=== PATIENT | male | born 1965 | race Caucasian/White ===

== ENCOUNTER 2017-07-18 09:04 | Outpatient (CLI) | payer BC ==
--- NOTE | 2017-07-18 10:15 | RAD ---
TWO VIEWS CHEST: History: Abnormal EKG. Comparison: None. FINDINGS: Normal cardiac silhouette. The pulmonary vessels and hilum are normal. Costophrenic angles are clear. No consolidation or mass. No pneumothorax or osseous abnormalities. IMPRESSION: No acute cardiopulmonary process. POS: [facility]
== END 2017-07-18 09:05 | disposition home or self-care (01) ==
LOC: SCSRAD 09:04
PROVIDERS: ATTEND Family Medicine
DX: Z87.828 Personal history of other (healed) physical injury and trauma (principal)
CPT/HCPCS: 71046

== ENCOUNTER 2019-09-12 08:12 | Outpatient (CLI) | payer BC ==
--- NOTE | 2019-09-12 08:47 | ULT ---
Sonogram abdomen complete HISTORY: Back pain and abdomen pain. FINDINGS: Gallbladder is well distended without stone apparent. Common duct is 0.5 cm. Liver is diffusely echogenic without focal mass or intrahepatic biliary dilatation. No free fluid. A 0.9 cm exophytic cyst projects from the lateral cortex of the right kidney. No hydronephrosis. The left kidney, spleen, and visualized portions of abdominal aorta, IVC, and pancreas are unremarkab le. IMPRESSION : No evidence of gallstones or biliary obstruction. Hepato-steatosis. Tiny right renal cyst.
== END 2019-09-12 08:13 | disposition home or self-care (01) ==
LOC: BICULT 08:12
PROVIDERS: ATTEND Internal Medicine
DX: M54.5 Low back pain (principal); N28.1 Cyst of kidney, acquired; K76.0 Fatty (change of) liver, not elsewhere classified
CPT/HCPCS: 93975